=== PATIENT | female | born 1940 | race Caucasian/White ===

== ENCOUNTER 2017-08-09 13:24 | Outpatient (CLI) | payer MEDICARE ==
--- NOTE | 2017-08-17 11:44 | MMO ---
BILATERAL DIGITAL SCREENING MAMMOGRAMS: Date: 08/09/17 This patient's mammogram was interpreted with the assistance of computer-aided detection. Comparison made with exams of 03/05/16 and 02/12/15. FINDINGS: There are scattered fibroglandular densities with benign calcifications. No suspicious masses or calc ifications are identified. IMPRESSION: BIRADS 2: Benign Finding(s) Return to annual mammographic screening. POS: [facility]
== END 2017-08-09 13:25 | disposition home or self-care (01) ==
LOC: SCSMAMMO 13:24
PROVIDERS: ATTEND Family Medicine
DX: Z12.31 Encounter for screening mammogram for malignant neoplasm of breast (principal)
CPT/HCPCS: 77067

== ENCOUNTER 2018-01-17 13:26 | Emergency (ER) | payer MEDICARE ==
[2018-01-17] MEDS ORDERED: Acetaminophen 325 MG TAB ONE (14:41)
--- NOTE | 2018-01-17 14:54 | RAD ---
FOUR VIEWS OF THE LEFT ELBOW: INDICATION: Left elbow injury. COMPARISON: None. 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 There is moderate osteoarthritic change involving the elbow joint. No definite acute fracture or subluxation is evident. There is prominent soft tis jama swelling seen posterior to the elbow joint. The lateral projection of the elbow joint is oblique d, slightly limiting detail. IMPRESSION: Soft tissue swelling along the posterior aspect of the left elbow that may reflect subcutaneous hemat yomi in light of the patient's recent injury. No definite acute fracture is evident. 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 POS: [facility]
--- NOTE | 2018-01-17 15:14 | CT ---
CT CERVICAL SPINE WITHOUT CONTRAST: Indication: History of fall with neck pain. FINDINGS: No acute fracture or subluxation is demonstrated. There is slight retrolisthesis of C6 on C7 which is stable to the comparison dated 10-29-08. There is slight anterior translation of C3 on C4 which is sl ightly more accentuated on the comparison examination but is felt to be related to degenerative rizvi e. There is diffuse osteopenia. The osseous central canal appears preserved. Craniocervical junction appears within normal limits. Lung apices are clear. The prevertebral soft tissues appear within norm al limits. IMPRESSION: No acute osseous abnormality. POS: [facility]
--- NOTE | 2018-01-17 15:17 | CT ---
CT BRAIN WITHOUT CONTRAST: HISTORY: Fall, trauma to the left side of the head, headache. FINDINGS: Comparison is made with the exam of 10/29/08. Changes of chronic small-vessel ischemic disease are noted in the periventricular white matter. The ventricular size is stable and the basilar cisterns are patent. No evidence of acute infarct, hemorr cuate, midline shift, or abnormal extraaxial fluid collections is seen. The bony calvarium is intact. There is a scalp contusion in the left frontal region. The visualized paranasal sinuses and mastoi d air cells are well aerated. IMPRESSION: No CT evidence of acute intracranial process. POS: [facility]
== END 2018-01-17 16:06 | disposition home or self-care (01) ==
LOC: ERS 13:26
DX: S00.83XA Contusion of other part of head, initial encounter (principal); S50.02XA Contusion of left elbow, initial encounter; I10 Essential (primary) hypertension; F41.9 Anxiety disorder, unspecified; F32.9 Major depressive disorder, single episode, unspecified; E78.2 Mixed hyperlipidemia; Z79.899 Other long term (current) drug therapy; W01.0XXA Fall on same level from slipping, tripping and stumbling without subsequent striking against object, initial encounter
CPT/HCPCS: 70450; 72125

== ENCOUNTER 2018-01-24 10:20 | Outpatient (CLI) | payer MEDICARE ==
--- NOTE | 2018-01-24 10:54 | RAD ---
FOUR VIEWS LEFT ELBOW: Comparison: 01-17-18 History: Fell last week, left elbow pain. FINDINGS: Four views of the left elbow shows moderate degenerative changes in the elbow joint. There are osteop hytes along the radial neck. The soft tissue swelling has decreased compared to the prior examination . There may be a small elbow effusion. There appears to be chondrocalcinosis of the elbow joints. IMPRESSION: Moderate to severe degenerative changes of the left elbow joint without acute osseous abnormality irish ntified. Please note that an elbow effusion is seen which could be sign of a radiographically occult fracture. If clinically concerned about a fracture, than a CT of the left elbow is likely necessary g iven the extensive degenerative changes. POS: [facility]
== END 2018-01-24 10:21 | disposition home or self-care (01) ==
LOC: SCSRAD 10:20
PROVIDERS: ATTEND Family Medicine
DX: S59.902D Unspecified injury of left elbow, subsequent encounter (principal); M19.022 Primary osteoarthritis, left elbow

== ENCOUNTER 2018-05-04 09:37 | Outpatient (CLI) | payer MEDICARE ==
--- NOTE | 2018-05-04 10:25 | RAD ---
TWO VIEWS CHEST: History: Hypertension. 10-days of cough. Comparison: None. FINDINGS: Atherosclerosis of the aorta. Normal cardiac silhouette. The pulmonary vessels and hilum are normal. Costophrenic angles are clear. Hyperinflation with chronic changes. No consolidation or mass. No pneu omothorax or osseous abnormality. IMPRESSION: 1. Hyperinflation. Chronic changes. 2. Atherosclerosis. POS: [facility]
== END 2018-05-04 09:38 | disposition home or self-care (01) ==
LOC: SCSRAD 09:37
PROVIDERS: ATTEND Family Medicine
DX: I10 Essential (primary) hypertension (principal); I70.90 Unspecified atherosclerosis
CPT/HCPCS: 71046

== ENCOUNTER 2018-10-17 07:46 | Outpatient (CLI) | payer MEDICARE ==
--- NOTE | 2018-10-17 08:42 | MMO ---
Bilateral MAMMO Bilat Screen [facility]. CLINICAL HISTORY: Patient is 78 years old and is seen for screening. VIEWS: The views performed were: bilateral craniocaudal with tomosynthesis and bilateral mediolateral oblique with tomosynthesis. FILMS COMPARED: The present examination has been compared to a prior imaging study performed at [facility] on 08/09/2017. MAMMOGRAM FINDINGS: The breasts are almost entirely fat. There are no suspicious masses, suspicious calcifications, or new areas of architectural distortion. IMPRESSION: THERE IS NO MAMMOGRAPHIC EVIDENCE OF MALIGNANCY. A ROUTINE FOLLOW-UP MAMMOGRAM IN 1 YEAR IS RECOMMENDED. THE RESULTS OF THIS EXAM WERE SENT TO THE PATIENT. ACR BI-RADS Category 1 - Negative MAMMOGRAPHY NOTE: 1. A negative mammogram report should not delay a biopsy if a dominant of clinically suspicious mass is present. 2. Approximately 10% to 15% of breast cancers are not detected by mammography. 3. Adenosis and dense breasts may obscure an underlying neoplasm.
--- NOTE | 2018-10-17 10:11 | BD ---
DEXA BONE MINERAL DENSITY STUDY: HISTORY: Osteoporosis screening. COMPARISON: None. FINDINGS: Lumbar Spine: BMD (g/cm2) L1 0.873 T-Score: -1.1 1.3 L2 0.878 T-Score: -1.4 1.2 L3 0.825 T-Score: -2.4 0.4 L4 0.855 T-Score: -1.9 1.0 L1-L4 0.856 T-Score: -1.7 0.9 WHO classification osteopenia. Femoral Neck: 0.531 T-Score: -2.9 -0.6 Total Femur: 0.708 T-Score: -1.9 0.1 WHO classification osteoporosis. Impression: Osteoporosis with elevated fracture risk. POS: [facility]
== END 2018-10-17 07:47 | disposition home or self-care (01) ==
LOC: BICMAMMO 07:46
PROVIDERS: ATTEND Family Medicine
DX: Z12.31 Encounter for screening mammogram for malignant neoplasm of breast (principal); Z13.820 Encounter for screening for osteoporosis; M81.0 Age-related osteoporosis without current pathological fracture; M85.88 Other specified disorders of bone density and structure, other site
CPT/HCPCS: 77063; 77067; 77080

== ENCOUNTER 2021-01-09 07:53 | Outpatient (CLI) | payer MEDICARE | END 2021-01-09 07:54 | disposition home or self-care (01) | LOC: BICMAMMO 07:53 | PROVIDERS: ATTEND Family Medicine | DX: Z12.31 Encounter for screening mammogram for malignant neoplasm of breast (principal); M81.0 Age-related osteoporosis without current pathological fracture; M85.88 Other specified disorders of bone density and structure, other site | CPT/HCPCS: 77063; 77067; 77080 ==

== ENCOUNTER 2021-08-10 10:17 | Inpatient (IN) | payer OTHER, MEDICARE ==
[2021-08-10] MEDS ORDERED: Fentanyl 100 MCG/2 ML VIAL ONE ×2 (11:12→13:13)
[2021-08-10 11:41] LABS: #Eosinphils 0.3 thou/uL (0.0-0.7); #Lymphocytes 3.5 thou/uL (1.20-3.40); #Monocytes 0.9 thou/uL (0.11-0.59); #Neutrophils 7.8 thou/uL (1.40-6.50); %Basophils 0.3 % (0.0-1.0); %Eosinophils 2.7 % (0.0-10.0); %Lymphocytes 27.8 % (21.0-51.0); %Monocytes 7.2 % (0.0-10.0); %Neutrophils 62.1 % (42.0-75.0); Hemoglobin 14.1 g/dL (12.0-16.0); Mean Corpuscular Hemoglobin 32.9 pg (27.0-31.0); Mean Corpuscular Volume 96.8 fL (78.0-98.0); Mean Platelet Volume 6.4 fL (7.4-10.4); Platelet Count 502 thou/uL (130-400); RBC Distribution Width 12.7 % (11.5-14.5); Red Blood Cell (RBC) Count 4.28 mill/uL (4.20-5.40); White Blood Cell (WBC) Count 12.5 thou/uL (4.8-10.8)
[2021-08-10 11:55] LABS: Prothrombin Time 12.9 sec (12.0-14.7)
[2021-08-10] MEDS ORDERED: ceFAZolin (BATCH) 2 GM/100 ML BAG ONE ×2 (11:56→13:56)
[2021-08-10 11:59] LABS: ALT (SGPT) 19 U/L (8-55); AST (SGOT) 19 U/L (5-34); Albumin 4.3 g/dL (3.4-4.8); Alkaline Phosphatase 74 U/L (40-110); Anion Gap 15 mmol/L (10-20); BUN (Urea Nitrogen) 9 mg/dL (9.8-20.1); Bilirubin, Total 0.4 mg/dL (0.2-1.2); Calc. Creatinine Clearance 0 mL/min (70-130); Calcium 10.3 mg/dL (7.8-10.44); Carbon Dioxide 26 mmol/L (23-31); Chloride 100 mmol/L (98-107); Globulin 2.1 g/dL (2.4-3.5); Glucose 115 mg/dL (83-110); Potassium 4.1 mmol/L (3.5-5.1); Protein, Total 6.4 g/dL (5.8-8.1); Sodium 137 mmol/L (136-145)
[2021-08-10 13:26] LABS: SARS-CoV-2 NAA Rapid Test Not Detected (NotDetected)
[2021-08-10] MEDS ORDERED: Dextrose 50% Abboject 50 ML SYRINGE SLOW IVP PRN (13:26)
[2021-08-10] MEDS ORDERED: Dextrose 5% in Water 1,000 ML IV PRN (13:26)
[2021-08-10] MEDS ORDERED: Ondansetron PF 4 MG/2 ML Vial IVP PRN ×2 (13:26→13:30)
[2021-08-10] MEDS ORDERED: Morphine 2 MG/ML VIAL SLOW IVP PRN (13:26)
[2021-08-10] MEDS ORDERED: hydrALAZINE 20 MG/ML VIAL SLOW IVP PRN (13:26)
[2021-08-10] MEDS ORDERED: Acetaminophen 325 MG TAB PO PRN (13:30)
[2021-08-10] MEDS ORDERED: Ondansetron ODT 4 MG TAB SL PRN (13:30)
[2021-08-10] MEDS ORDERED: Sodium Chloride 0.9% 1,000 ML IV SCH ×2 (13:30→13:35)
[2021-08-10] MEDS ORDERED: ceFAZolin (BATCH) 2 GM in Premix Bag 1 BAG IVPB SCH (13:30)
[2021-08-10 13:31] LABS: Magnesium 1.8 mg/dL (1.6-2.6); Phosphorus 3.9 mg/dL (2.3-4.7)
[2021-08-10] MEDS ORDERED: Cyclobenzaprine 10 MG TAB PO PRN (13:32)
[2021-08-10] MEDS ORDERED: Morphine 4 MG/ML VIAL ONE (13:35)
[2021-08-10] MEDS ORDERED: PROPOFOL 200 MG/20 ML VIAL ONE (13:48)
[2021-08-10] MEDS ORDERED: Dexamethasone 20 MG/5 ML VIAL ONE (13:48)
[2021-08-10] MEDS ORDERED: Ketorolac Tromethamine 30 MG/ML VIAL ONE (13:48)
[2021-08-10] MEDS ORDERED: Ondansetron PF 4 MG/2 ML Vial ONE (13:48)
[2021-08-10] MEDS ORDERED: Rocuronium Bromide 10 MG/ML (10ML VIAL) ONE (13:48)
[2021-08-10] MEDS ORDERED: Lidocaine 1% PF 5 ML VIAL ONE (13:48)
[2021-08-10] MEDS ORDERED: Ketamine 50 MG/ML (10ML VIAL) ONE (13:56)
[2021-08-10] MEDS ORDERED: Dexmedetomidine 200 MCG/2 ML VIAL ONE (13:56)
[2021-08-10] MEDS ORDERED: Ondansetron HCl/PF 4 MG/2 ML Vial IVP PRN (14:22)
[2021-08-10] MEDS ORDERED: Promethazine HCl 25 MG/ML VIAL IVPB PRN (14:22)
[2021-08-10] MEDS ORDERED: Promethazine HCl 25 MG/ML VIAL IM PRN (14:22)
[2021-08-10] MEDS ORDERED: Iopamidol-370 76% 500 ML 1 ML ONE (14:38)
[2021-08-10] MEDS ORDERED: Bacitracin Zinc Ointment 30 gm TUBE ONE (15:16)
[2021-08-10] MEDS ORDERED: SUGAMMADEX SODIUM 200 MG/2 ML VIAL ONE (15:23)
[2021-08-10] MEDS ORDERED: Magnesium 2 GM/50 ML(in water) 2 GM in Premix Bag 1 BAG IVPB SCH (18:00)
[2021-08-10] MEDS: traMADol HCl 50 MG TAB PO SCH (18:15)
[2021-08-10] MEDS: traMADol HCl 50 MG TAB PO PRN (18:15)
[2021-08-10] MEDS: Acetaminophen 500 MG TAB PO SCH (18:16)
[2021-08-10] MEDS: Ibuprofen 200 MG TAB PO SCH ×2 (18:22→21:51)
[2021-08-10] MEDS: Gabapentin 100 MG CAP PO SCH ×2 (18:22→21:50)
[2021-08-10 19:29] VITALS: BMI 20.2
[2021-08-10] MEDS: CEFAZOLIN 1 GM in Sodium Chloride 0.9% 100 ML IVPB SCH (21:49)
[2021-08-10] MEDS: Famotidine 20 MG TAB PO SCH (21:50)
[2021-08-10] MEDS: Senokot S 8.6-50 MG TAB PO SCH (21:50)
[2021-08-11] MEDS: traMADol HCl 50 MG TAB PO SCH ×4 (00:10→18:14)
[2021-08-11] MEDS: Acetaminophen 500 MG TAB PO SCH ×4 (00:10→18:13)
[2021-08-11 06:12] LABS: #Monocytes 1.3 thou/uL (0.11-0.59); #Neutrophils 7.9 thou/uL (1.40-6.50); %Basophils 0.3 % (0.0-1.0); %Eosinophils 0.1 % (0.0-10.0); %Lymphocytes 9.8 % (21.0-51.0); %Neutrophils 76.9 % (42.0-75.0); Hemoglobin 10.3 g/dL (12.0-16.0); Mean Corpuscular Hemoglobin 33.2 pg (27.0-31.0); Mean Platelet Volume 6.2 fL (7.4-10.4); Platelet Count 361 thou/uL (130-400); RBC Distribution Width 12.6 % (11.5-14.5); White Blood Cell (WBC) Count 10.2 thou/uL (4.8-10.8)
[2021-08-11] MEDS: CEFAZOLIN 1 GM in Sodium Chloride 0.9% 100 ML IVPB SCH ×3 (06:20→22:00)
[2021-08-11] MEDS: Ibuprofen 200 MG TAB PO SCH ×3 (06:20→22:00)
[2021-08-11 06:23] LABS: Anion Gap 11 mmol/L (10-20); BUN (Urea Nitrogen) 9 mg/dL (9.8-20.1); Calc. Creatinine Clearance 46 mL/min (70-130); Calcium 7.6 mg/dL (7.8-10.44); Carbon Dioxide 22 mmol/L (23-31); Chloride 108 mmol/L (98-107); Glucose 117 mg/dL (83-110); Magnesium 2.3 mg/dL (1.6-2.6); Phosphorus 3.2 mg/dL (2.3-4.7); Potassium 4.2 mmol/L (3.5-5.1); Sodium 137 mmol/L (136-145)
[2021-08-11] MEDS: Gabapentin 100 MG CAP PO SCH ×3 (08:10→22:00)
[2021-08-11] MEDS: Famotidine 20 MG TAB PO SCH ×2 (08:10→22:00)
[2021-08-11] MEDS: Polyethylene Glycol 3350 17 GM Packet PO SCH (08:11)
[2021-08-11] MEDS ORDERED: PHOS-NAK 1 PKT PACK PO SCH (09:45)
[2021-08-11] MEDS: Senokot S 8.6-50 MG TAB PO SCH ×2 (11:01→22:00)
[2021-08-11] MEDS: traMADol HCl 50 MG TAB PO PRN (13:22)
[2021-08-11] MEDS ORDERED: Simvastatin 20 MG TAB PO SCH (21:00)
[2021-08-11] MEDS ORDERED: PARoxetine 20 MG TAB PO SCH (21:00)
[2021-08-11] MEDS ORDERED: Atorvastatin Calcium 10 MG TAB PO SCH (21:00)
[2021-08-12] MEDS: traMADol HCl 50 MG TAB PO SCH ×4 (00:30→17:48)
[2021-08-12] MEDS: Acetaminophen 500 MG TAB PO SCH ×4 (00:30→17:49)
[2021-08-12 06:25] LABS: #Basophils 0.1 thou/uL (0.0-0.2); #Eosinphils 0.3 thou/uL (0.0-0.7); #Lymphocytes 2.4 thou/uL (1.20-3.40); #Monocytes 1.4 thou/uL (0.11-0.59); %Basophils 0.6 % (0.0-1.0); %Eosinophils 2.9 % (0.0-10.0); %Lymphocytes 21.5 % (21.0-51.0); %Monocytes 12.1 % (0.0-10.0); %Neutrophils 62.9 % (42.0-75.0); Hemoglobin 9.4 g/dL (12.0-16.0); Mean Corpuscular HGB CONC 32.7 g/dL (32.0-36.0); Mean Corpuscular Hemoglobin 32.9 pg (27.0-31.0); Mean Platelet Volume 6.2 fL (7.4-10.4); Platelet Count 287 thou/uL (130-400); RBC Distribution Width 12.8 % (11.5-14.5); Red Blood Cell (RBC) Count 2.86 mill/uL (4.20-5.40); White Blood Cell (WBC) Count 11.1 thou/uL (4.8-10.8)
[2021-08-12] MEDS: Ibuprofen 200 MG TAB PO SCH ×2 (06:30→14:43)
[2021-08-12] MEDS: CEFAZOLIN 1 GM in Sodium Chloride 0.9% 100 ML IVPB SCH ×2 (06:30→15:08)
[2021-08-12 06:58] LABS: Anion Gap 10 mmol/L (10-20); BUN (Urea Nitrogen) 9 mg/dL (9.8-20.1); Calc. Creatinine Clearance 49 mL/min (70-130); Calcium 8.1 mg/dL (7.8-10.44); Carbon Dioxide 26 mmol/L (23-31); Chloride 107 mmol/L (98-107); Glucose 81 mg/dL (83-110); Phosphorus 2.2 mg/dL (2.3-4.7); Potassium 3.8 mmol/L (3.5-5.1); Sodium 139 mmol/L (136-145)
[2021-08-12] MEDS: Polyethylene Glycol 3350 17 GM Packet PO SCH (08:48)
[2021-08-12] MEDS: Famotidine 20 MG TAB PO SCH (08:48)
[2021-08-12] MEDS: Gabapentin 100 MG CAP PO SCH ×2 (08:48→14:44)
[2021-08-12] MEDS ORDERED: Saccharomyces boulardii 250 MG CAP PO SCH (09:00)
[2021-08-12] MEDS ORDERED: Potassium Phosphate 30 MMOL in Sodium Chloride 0.9% 250 ML 250 ML IVPB SCH (09:00)
[2021-08-12] MEDS ORDERED: Enoxaparin Sodium 40 MG/0.4 ML SYRINGE SC SCH (09:00)
[2021-08-12] MEDS ORDERED: Bupropion 150 MG XL TAB PO SCH (09:00)
[2021-08-12 09:07] LABS: Anion Gap 11 mmol/L (10-20); BUN (Urea Nitrogen) 10 mg/dL (9.8-20.1); Calc. Creatinine Clearance 51 mL/min (70-130); Calcium 8.1 mg/dL (7.8-10.44); Carbon Dioxide 26 mmol/L (23-31); Chloride 106 mmol/L (98-107); Glucose 79 mg/dL (83-110); Potassium 4.1 mmol/L (3.5-5.1); Sodium 139 mmol/L (136-145)
[2021-08-12] MEDS: Senokot S 8.6-50 MG TAB PO SCH (10:04)
[2021-08-12] MEDS ORDERED: Ferrous Sulfate 325 MG TAB PO SCH (12:00)
[2021-08-12 16:11] VITALS: BP 113/66; TEMP 98.3
[2021-08-13] MEDS ORDERED: Ascorbic Acid 500 mg Chewable Tablet PO SCH (09:00)
== END 2021-08-12 18:13 | disposition home health service (06) | DRG 511 ==
LOC: ERS 10:17 → SDC 14:00 → SURG A 14:01
PROVIDERS: ADMIT Surgery; ATTEND Surgery
PROC: 0PSH04Z Reposition Right Radius with Internal Fixation Device, Open Approach (ICD-10-PCS; principal; 2021-08-10)
PROC: 0PSK04Z Reposition Right Ulna with Internal Fixation Device, Open Approach (ICD-10-PCS; 2021-08-10)
PROC: 0PSCXZZ Reposition Right Humeral Head, External Approach (ICD-10-PCS; 2021-08-10)
DX: S52.351B Displaced comminuted fracture of shaft of radius, right arm, initial encounter for open fracture type I or II (principal); S42.291A Other displaced fracture of upper end of right humerus, initial encounter for closed fracture; S52.25 Comminuted fracture of shaft of ulna; Z20.822 Contact with and (suspected) exposure to COVID-19; I10 Essential (primary) hypertension; E78.5 Hyperlipidemia, unspecified; F32.A Depression, unspecified; D64.89 Other specified anemias; V43.52XA Car driver injured in collision with other type car in traffic accident, initial encounter; Y92.410 Unspecified street and highway as the place of occurrence of the external cause; Z90.89 Acquired absence of other organs; Z79.899 Other long term (current) drug therapy; Z79.82 Long term (current) use of aspirin; Z88.8 Allergy status to other drugs, medicaments and biological substances
CPT/HCPCS: 36415; 36416; 70450; 71045; 71260; 72125; 74177; 76000; 80048; 80053; 83605; 83735; 84100; 84484; 85025; 85610; 85730; 86850; 86900; 86901; 93005; 96365; 96375; C1713; C1874; J0690; J1100; J1650; J1885; J2270; J2405; J2704; J3010; J3370; J3475; J3490; J7050; Q9967; U0002

== ENCOUNTER 2022-07-21 14:26 | Inpatient (IN) | payer MEDICARE ==
[2022-07-22] MEDS ORDERED: Ondansetron PF 4 MG/2 ML Vial IVP PRN (11:49)
[2022-07-22] MEDS ORDERED: hydrALAZINE 20 MG/ML VIAL SLOW IVP PRN (11:49)
[2022-07-22] MEDS ORDERED: Dextrose 5% in Water 1,000 ML IV PRN (11:49)
[2022-07-22] MEDS ORDERED: Dextrose 50% Abboject 50 ML SYRINGE SLOW IVP PRN (11:49)
[2022-07-22] MEDS ORDERED: Morphine 2 MG/ML VIAL SLOW IVP PRN (11:49)
[2022-07-22] MEDS ORDERED: traMADol HCl 50 MG TAB PO PRN (11:52)
[2022-07-22] MEDS: Acetaminophen 500 MG TAB PO SCH ×2 (12:00→18:34)
[2022-07-22] MEDS ORDERED: Sodium Chloride 0.9% 1,000 ML IV SCH (12:00)
[2022-07-22] MEDS: traMADol HCl 50 MG TAB PO SCH ×2 (12:00→18:33)
[2022-07-22 12:04] LABS: #Eosinphils 0.5 thou/uL (0.0-0.7); #Lymphocytes 1.4 thou/uL (1.20-3.40); #Monocytes 1.3 thou/uL (0.11-0.59); #Neutrophils 10.5 thou/uL (1.40-6.50); %Basophils 0.2 % (0.0-1.0); %Eosinophils 3.3 % (0.0-10.0); %Lymphocytes 10.5 % (21.0-51.0); %Monocytes 9.6 % (0.0-10.0); %Neutrophils 76.4 % (42.0-75.0); Hemoglobin 12.6 g/dL (12.0-16.0); Mean Corpuscular HGB CONC 33.4 g/dL (32.0-36.0); Mean Corpuscular Hemoglobin 33.1 pg (27.0-31.0); Mean Corpuscular Volume 98.9 fl (78.0-98.0); Mean Platelet Volume 6.9 fL (7.4-10.4); Platelet Count 349 10x3/uL (130-400); RBC Distribution Width 13.1 % (11.5-14.5); Red Blood Cell (RBC) Count 3.82 mill/uL (4.20-5.40); White Blood Cell (WBC) Count 13.7 10x3/uL (4.8-10.8)
[2022-07-22] MEDS ORDERED: Phenylephrine 10 MG/ML VIAL ONE (12:18)
[2022-07-22] MEDS ORDERED: fentaNYL 50 mcg/mL 1 mL Vial ONE ×2 (12:18→14:36)
[2022-07-22 12:21] LABS: ALT (SGPT) 14 U/L (8-55); AST (SGOT) 13 U/L (5-34); Albumin 3.6 g/dL (3.4-4.8); Alkaline Phosphatase 70 U/L (40-110); Anion Gap 9 mmol/L (10-20); BUN (Urea Nitrogen) 11 mg/dL (9.8-20.1); Bilirubin, Total 0.9 mg/dL (0.2-1.2); Calc. Creatinine Clearance 0 mL/min (70-130); Calcium 8.9 mg/dL (7.8-10.44); Carbon Dioxide 31 mmol/L (23-31); Chloride 102 mmol/L (98-107); Estimated GFR 88; Globulin 2.4 g/dL (2.4-3.5); Glucose 96 mg/dL (83-110); Magnesium 1.9 mg/dL (1.6-2.6); Phosphorus 3.1 mg/dL (2.3-4.7); Potassium 4.1 mmol/L (3.5-5.1); Sodium 138 mmol/L (136-145)
[2022-07-22] MEDS ORDERED: Sodium Chloride 0.9% 100 ML ONE (12:42)
[2022-07-22] MEDS ORDERED: CEFAZOLIN 2 GM VIAL ONE (12:42)
[2022-07-22] MEDS ORDERED: Rocuronium Bromide 10 MG/ML (10ML VIAL) ONE (12:51)
[2022-07-22] MEDS ORDERED: PROPOFOL 200 MG/20 ML VIAL ONE (12:51)
[2022-07-22] MEDS ORDERED: Ondansetron PF 4 MG/2 ML Vial ONE (12:51)
[2022-07-22] MEDS ORDERED: Lidocaine 1% PF 5 ML VIAL ONE (12:51)
[2022-07-22] MEDS ORDERED: SUGAMMADEX SODIUM 200 MG/2 ML VIAL ONE (13:37)
[2022-07-22] MEDS ORDERED: Promethazine HCl 25 MG/ML VIAL IM PRN (14:11)
[2022-07-22] MEDS ORDERED: Ondansetron HCl/PF 4 MG/2 ML Vial IVP PRN (14:11)
[2022-07-22] MEDS ORDERED: Ibuprofen 200 MG TAB PO PRN (15:30)
[2022-07-22 19:39] VITALS: BMI 20.2
[2022-07-22] MEDS: Senokot S 8.6-50 MG TAB PO SCH (20:36)
[2022-07-22] MEDS: Famotidine 20 MG TAB PO SCH (20:36)
[2022-07-22] MEDS: CEFAZOLIN 2 GM in Sodium Chloride 0.9% 100 ML IVPB SCH (20:36)
[2022-07-23] MEDS: Acetaminophen 500 MG TAB PO SCH ×4 (00:20→18:03)
[2022-07-23] MEDS: traMADol HCl 50 MG TAB PO SCH ×4 (00:20→18:03)
[2022-07-23] MEDS: CEFAZOLIN 2 GM in Sodium Chloride 0.9% 100 ML IVPB SCH ×2 (06:27→12:34)
[2022-07-23 07:11] LABS: Bacteria/HPF None Seen HPF (None Seen); Bilirubin Negative (Negative); Blood, Urine Negative (Negative); CAUTI Indications for Culture Pelvic or flank pain; Clarity Clear (Clear); Glucose, Urine (Dipstick) Normal (Negative); Ketone, Urine 20 mg/dL (Negative); Leukocyte Negative Leu/uL (Negative); Nitrite Negative (Negative); Protein, Urine (Dipstick) Negative (Neg-Trace); RBC/HPF 0-3 HPF (0-3); Squamous Epithelial None Seen HPF (0-3); Urobilinogen Normal mg/dL (Less than 2); WBC/HPF 0-3 HPF (0-3); pH, Urine 5.5 (5.0-9.0)
[2022-07-23 07:15] LABS: Urine Culture Reflex No No
[2022-07-23 08:05] LABS: #Basophils 0.1 thou/uL (0.0-0.2); #Eosinphils 0.4 thou/uL (0.0-0.7); #Lymphocytes 1.1 thou/uL (1.20-3.40); #Monocytes 1.2 thou/uL (0.11-0.59); #Neutrophils 11.3 thou/uL (1.40-6.50); %Basophils 0.5 % (0.0-1.0); %Eosinophils 2.7 % (0.0-10.0); %Lymphocytes 7.4 % (21.0-51.0); %Monocytes 8.8 % (0.0-10.0); %Neutrophils 80.6 % (42.0-75.0); Mean Corpuscular HGB CONC 33.5 g/dL (32.0-36.0); Mean Corpuscular Hemoglobin 32.9 pg (27.0-31.0); Mean Corpuscular Volume 98.2 fl (78.0-98.0); Mean Platelet Volume 6.8 fL (7.4-10.4); Platelet Count 282 10x3/uL (130-400); RBC Distribution Width 12.8 % (11.5-14.5); Red Blood Cell (RBC) Count 3.03 mill/uL (4.20-5.40); White Blood Cell (WBC) Count 14.1 10x3/uL (4.8-10.8)
[2022-07-23 08:25] LABS: Anion Gap 12 mmol/L (10-20); BUN (Urea Nitrogen) 14 mg/dL (9.8-20.1); Calc. Creatinine Clearance 48 mL/min (70-130); Calcium 8.3 mg/dL (7.8-10.44); Carbon Dioxide 26 mmol/L (23-31); Chloride 101 mmol/L (98-107); Estimated GFR 88; Glucose 84 mg/dL (83-110); Magnesium 1.7 mg/dL (1.6-2.6); Phosphorus 2.7 mg/dL (2.3-4.7); Potassium 3.5 mmol/L (3.5-5.1); Sodium 135 mmol/L (136-145)
[2022-07-23] MEDS ORDERED: Magnesium 2 GM/50 ML(in water) 2 GM in Premix Bag 1 BAG IVPB SCH (09:30)
[2022-07-23] MEDS: Famotidine 20 MG TAB PO SCH ×2 (10:36→22:00)
[2022-07-23] MEDS: Senokot S 8.6-50 MG TAB PO SCH ×2 (10:36→21:59)
[2022-07-23] MEDS: Polyethylene Glycol 3350 17 GM Packet PO SCH (10:37)
[2022-07-23] MEDS: Cyclobenzaprine 10 MG TAB PO PRN (17:01)
[2022-07-23] MEDS: Aspirin 81 mg Enteric Coated Tablet PO SCH (22:00)
[2022-07-23] MEDS: Atorvastatin Calcium 10 MG TAB PO SCH (22:00)
[2022-07-24] MEDS: Acetaminophen 500 MG TAB PO SCH ×3 (00:37→17:46)
[2022-07-24] MEDS: traMADol HCl 50 MG TAB PO SCH ×3 (00:37→17:47)
[2022-07-24 06:02] LABS: #Basophils 0.1 thou/uL (0.0-0.2); #Eosinphils 0.5 thou/uL (0.0-0.7); #Lymphocytes 1.7 thou/uL (1.20-3.40); #Monocytes 1.1 thou/uL (0.11-0.59); %Basophils 0.7 % (0.0-1.0); %Eosinophils 4.4 % (0.0-10.0); %Lymphocytes 16.6 % (21.0-51.0); %Monocytes 10.7 % (0.0-10.0); %Neutrophils 67.6 % (42.0-75.0); Hemoglobin 10.4 g/dL (12.0-16.0); Mean Corpuscular HGB CONC 34.1 g/dL (32.0-36.0); Mean Corpuscular Hemoglobin 33.6 pg (27.0-31.0); Mean Corpuscular Volume 98.6 fl (78.0-98.0); Mean Platelet Volume 7.1 fL (7.4-10.4); Platelet Count 293 10x3/uL (130-400); White Blood Cell (WBC) Count 10.4 10x3/uL (4.8-10.8)
[2022-07-24 06:24] LABS: Anion Gap 12 mmol/L (10-20); BUN (Urea Nitrogen) 13 mg/dL (9.8-20.1); Calc. Creatinine Clearance 53 mL/min (70-130); Calcium 8.5 mg/dL (7.8-10.44); Carbon Dioxide 28 mmol/L (23-31); Chloride 106 mmol/L (98-107); Estimated GFR 90; Glucose 74 mg/dL (83-110); Magnesium 2.1 mg/dL (1.6-2.6); Phosphorus 2.4 mg/dL (2.3-4.7); Potassium 3.8 mmol/L (3.5-5.1); Sodium 142 mmol/L (136-145)
[2022-07-24] MEDS: PARoxetine 20 MG TAB PO SCH (08:58)
[2022-07-24] MEDS: Senokot S 8.6-50 MG TAB PO SCH ×2 (08:58→20:18)
[2022-07-24] MEDS: Famotidine 20 MG TAB PO SCH ×2 (08:58→20:18)
[2022-07-24] MEDS: Aspirin 81 mg Enteric Coated Tablet PO SCH ×2 (08:58→20:18)
[2022-07-24] MEDS: Bupropion 150 MG XL TAB PO SCH (08:58)
[2022-07-24] MEDS: Polyethylene Glycol 3350 17 GM Packet PO SCH (09:00)
[2022-07-24] MEDS ORDERED: traMADol HCl 50 MG TAB PO SCH (09:00)
[2022-07-24] MEDS ORDERED: Acetaminophen 500 MG TAB PO SCH (09:00)
[2022-07-24] MEDS: Atorvastatin Calcium 10 MG TAB PO SCH (20:18)
[2022-07-25] MEDS: traMADol HCl 50 MG TAB PO SCH ×4 (00:05→17:56)
[2022-07-25] MEDS: Acetaminophen 500 MG TAB PO SCH ×4 (00:05→17:57)
[2022-07-25] MEDS ORDERED: Non-Formulary Item 1 EACH (Hydrochlorothiazide [Hydrochlorothiazide] 12.5 MG Capsule) PO SCH (09:00)
[2022-07-25] MEDS: Lisinopril 5 MG TAB PO SCH (09:13)
[2022-07-25] MEDS: Aspirin 81 mg Enteric Coated Tablet PO SCH ×2 (09:13→20:09)
[2022-07-25] MEDS: Bupropion 150 MG XL TAB PO SCH (09:13)
[2022-07-25] MEDS: Famotidine 20 MG TAB PO SCH ×2 (09:13→20:09)
[2022-07-25] MEDS: Hydrochlorothiazide 25 MG TAB PO SCH (09:13)
[2022-07-25] MEDS: PARoxetine 20 MG TAB PO SCH (09:14)
[2022-07-25] MEDS: Senokot S 8.6-50 MG TAB PO SCH ×2 (09:14→20:09)
[2022-07-25] MEDS: Polyethylene Glycol 3350 17 GM Packet PO SCH (09:15)
[2022-07-25] MEDS: Atorvastatin Calcium 10 MG TAB PO SCH (20:09)
[2022-07-26] MEDS: traMADol HCl 50 MG TAB PO SCH ×4 (00:12→17:01)
[2022-07-26] MEDS: Acetaminophen 500 MG TAB PO SCH ×4 (00:12→17:01)
[2022-07-26] MEDS: Aspirin 81 mg Enteric Coated Tablet PO SCH ×2 (08:20→20:51)
[2022-07-26] MEDS: Lisinopril 5 MG TAB PO SCH (08:20)
[2022-07-26] MEDS: Bupropion 150 MG XL TAB PO SCH (08:20)
[2022-07-26] MEDS: Hydrochlorothiazide 25 MG TAB PO SCH (08:20)
[2022-07-26] MEDS: Famotidine 20 MG TAB PO SCH ×2 (08:21→20:51)
[2022-07-26] MEDS: PARoxetine 20 MG TAB PO SCH (08:21)
[2022-07-26] MEDS: Polyethylene Glycol 3350 17 GM Packet PO SCH (08:22)
[2022-07-26] MEDS: Senokot S 8.6-50 MG TAB PO SCH ×2 (08:22→20:51)
[2022-07-26] MEDS: Cyclobenzaprine 10 MG TAB PO PRN ×2 (09:05→20:54)
[2022-07-26] MEDS: Atorvastatin Calcium 10 MG TAB PO SCH (20:51)
[2022-07-27] MEDS: traMADol HCl 50 MG TAB PO SCH ×3 (00:07→14:30)
[2022-07-27] MEDS: Acetaminophen 500 MG TAB PO SCH ×3 (00:07→14:30)
[2022-07-27] MEDS: Polyethylene Glycol 3350 17 GM Packet PO SCH (08:28)
[2022-07-27] MEDS: Senokot S 8.6-50 MG TAB PO SCH (08:28)
[2022-07-27] MEDS: Famotidine 20 MG TAB PO SCH (08:29)
[2022-07-27] MEDS: Bupropion 150 MG XL TAB PO SCH (08:29)
[2022-07-27] MEDS: Hydrochlorothiazide 25 MG TAB PO SCH (08:29)
[2022-07-27] MEDS: PARoxetine 20 MG TAB PO SCH (08:29)
[2022-07-27] MEDS: Lisinopril 5 MG TAB PO SCH (08:30)
[2022-07-27] MEDS: Aspirin 81 mg Enteric Coated Tablet PO SCH (08:40)
[2022-07-27 16:34] VITALS: BP 122/68; TEMP 99.1
== END 2022-07-27 16:34 | disposition home health service (06) | DRG 482 ==
LOC: SURG A 07-22 11:22
PROVIDERS: ADMIT Surgery; ATTEND Surgery
PROC: 0QS704Z Reposition Left Upper Femur with Internal Fixation Device, Open Approach (ICD-10-PCS; principal; 2022-07-22)
DX: S72.092A Other fracture of head and neck of left femur, initial encounter for closed fracture (principal); M19.90 Unspecified osteoarthritis, unspecified site; F41.9 Anxiety disorder, unspecified; F32.A Depression, unspecified; I10 Essential (primary) hypertension; E78.5 Hyperlipidemia, unspecified; W18.39XA Other fall on same level, initial encounter; Y92.009 Unspecified place in unspecified non-institutional (private) residence as the place of occurrence of the external cause; Z90.49 Acquired absence of other specified parts of digestive tract; Z90.710 Acquired absence of both cervix and uterus; Z98.890 Other specified postprocedural states; Z88.8 Allergy status to other drugs, medicaments and biological substances; Z79.899 Other long term (current) drug therapy; Z79.82 Long term (current) use of aspirin
CPT/HCPCS: 36415; 71045; 80048; 80053; 81001; 83735; 84100; 85025; C1713; C1769; J2370; J2405; J2704; J3010; J3475; J3490

== ENCOUNTER 2023-03-01 10:33 | Outpatient (CLI) | payer MEDICARE | END 2023-03-01 10:34 | disposition home or self-care (01) | LOC: BICMAMMO 10:33 | PROVIDERS: ATTEND Family Medicine | DX: Z12.31 Encounter for screening mammogram for malignant neoplasm of breast (principal) | CPT/HCPCS: 77063; 77067 ==

== ENCOUNTER 2023-05-04 14:01 | Emergency (ER) | payer MEDICARE, OTHER ==
[2023-05-04] MEDS ORDERED: HYDROcodone/Acetaminophen 5/325 mg Tablet ONE (17:18)
== END 2023-05-04 18:11 | disposition home or self-care (01) ==
LOC: ERS 14:01
DX: S70.01XA Contusion of right hip, initial encounter (principal); I10 Essential (primary) hypertension; W19.XXXA Unspecified fall, initial encounter; Z79.82 Long term (current) use of aspirin; Z79.899 Other long term (current) drug therapy
CPT/HCPCS: 72170

== ENCOUNTER 2023-10-29 08:02 | Outpatient (CLI) | payer MEDICARE | END 2023-10-29 08:03 | disposition home or self-care (01) | LOC: BICMAMMO 08:02 | PROVIDERS: ATTEND Family Medicine | DX: Z13.820 Encounter for screening for osteoporosis (principal); M81.0 Age-related osteoporosis without current pathological fracture; M85.88 Other specified disorders of bone density and structure, other site; Z78.0 Asymptomatic menopausal state | CPT/HCPCS: 77080 ==

== ENCOUNTER 2024-01-05 18:14 | Emergency (ER) | payer MEDICARE ==
[2024-01-05 18:43] LABS: #Basophils 0.07 10x3/uL (0.0-0.2); %Basophils 0.7 % (0.0-1.0); %Eosinophils 3.7 % (0.0-10.0); %Monocytes 11.5 % (0.0-10.0); %Neutrophils 64.4 % (42.0-75.0); Hematocrit 40.5 % (36.0-47.0); Hemoglobin 13.7 g/dL (12.0-16.0); Mean Corpuscular HGB CONC 33.8 g/dL (32.0-36.0); Mean Corpuscular Hemoglobin 32.2 pg (27.0-31.0); Mean Corpuscular Volume 95.1 fL (78.0-98.0); Mean Platelet Volume 8.9 fL (7.4-10.4); Platelet Count 510 10x3/uL (130-400); RBC Distribution Width 14.2 % (11.5-14.5); Red Blood Cell (RBC) Count 4.26 mill/uL (4.20-5.40)
[2024-01-05 19:02] LABS: ALT (SGPT) 18 U/L (8-55); AST (SGOT) 27 U/L (5-34); Albumin 3.9 g/dL (3.4-4.8); Alkaline Phosphatase 90 U/L (40-110); Anion Gap 21 mmol/L (10-20); BUN (Urea Nitrogen) 13 mg/dL (9.8-20.1); Bilirubin, Total 0.2 mg/dL (0.2-1.2); Calc. Creatinine Clearance 0 mL/min (70-130); Calcium 10.3 mg/dL (7.8-10.44); Carbon Dioxide 20 mmol/L (23-31); Chloride 103 mmol/L (98-107); Estimated GFR 65; Globulin 3.3 g/dL (2.4-3.5); Glucose 127 mg/dL (83-110); Potassium 4.7 mmol/L (3.5-5.1); Protein, Total 7.2 g/dL (5.8-8.1); Sodium 139 mmol/L (136-145)
[2024-01-05 19:07] LABS: Troponin I Less than 0.010 ng/mL (< 0.028)
[2024-01-05 19:12] LABS: Acetaminophen Less than 10 mcg/mL (Less than 10); Alcohol Less than 10.0 mg/dL (Less than 10); Salicylate Less than 8.0 mg/dL (Less than 8.0)
[2024-01-05 21:31] LABS: Amphetamine Not Detected (NotDetected); Barbiturates Screen Not Detected (NotDetected); Benzodiazepine Screen Not Detected (NotDetected); Cocaine Metabolite Screen Not Detected (NotDetected); Methadone Not Detected (NotDetected); Methamphetamine Not Detected (NotDetected); Opiate Screen Not Detected (NotDetected); Oxycodone Screen Not Detected (NotDetected); Phencyclidine (PCP) Not Detected (NotDetected); THC/Cannabinoid Screen Not Detected (NotDetected); Tricyclic Screen Not Detected (NotDetected)
[2024-01-05 21:39] LABS: Bacteria/HPF None Seen HPF (None Seen); Bilirubin Negative (Negative); Blood, Urine Negative (Negative); CAUTI Indications for Culture Alt mental st,lethar; Clarity Turbid (Clear); Glucose, Urine (Dipstick) Normal (Negative); Ketone, Urine Negative (Negative); Leukocyte 500 Leu/uL (Negative); Nitrite Negative (Negative); Protein, Urine (Dipstick) Negative (Neg-Trace); RBC/HPF 0-3 HPF (0-3); Specific Gravity, Urine 1.008 (1.002-1.036); Squamous Epithelial 0-3 HPF (0-3); Transitional Epithelial 0-3 HPF (None Seen); Urobilinogen Normal mg/dL (Less than 2)
[2024-01-05 22:20] LABS: Urine Culture Reflex Yes Yes
[2024-01-05] MEDS ORDERED: cefTRIAXone (ROCEPHIN) 1 GM VIAL ONE (22:53)
== END 2024-01-05 23:07 | disposition home or self-care (01) ==
LOC: ERS 18:14
DX: F32.A Depression, unspecified (principal); N39.0 Urinary tract infection, site not specified; R53.1 Weakness; I10 Essential (primary) hypertension; E78.00 Pure hypercholesterolemia, unspecified; Z79.899 Other long term (current) drug therapy
CPT/HCPCS: 70450; 71045; 80306; 80307; 81001; 83880; 84484; 87086; 93005; J0696; 80053; 84443; 85025